=== PATIENT | female | born 1955 | race Caucasian/White ===

== ENCOUNTER → 2019-05-06 | Day surgery (SDC) | payer BC ==
[~2019-05-06] MED LIST: FENTANYL CITRATE/PF 100MCG/2 ML INJ ONE; GLUCAGON FOR INJ 1 MG VIAL ONE; HYOSCYAMINE 0.125 MG TAB ONE; LORATADINE; MIDAZOLAM HCL 2 MG/2 ML VIAL ONE; MULTIVITAMIN; PROPOFOL IV EMULSION 10 MG/ML 50 ML VIAL ONE; VITAMIN D; ZPAK
[2019-05-06 11:35] VITALS: BP 121/74
--- NOTE | 2019-05-06 18:43 | Operative Report ---
DATE OF PROCEDURE: 05/06/2019 SURGEON: Jareth Figueroa MD PROCEDURES: EGD with biopsies and colonoscopy with polypectomy. INDICATIONS FOR EGD: Dyspepsia. INDICATIONS FOR COLONOSCOPY: Surveillance colonoscopy, personal history of colon polyps. MEDICATIONS: The patient was done under MAC, please see anesthesiologist's note. PROCEDURE IN DETAIL: With the patient in the left lateral decubitus position, a flexible fiberoptic Olympus gastroscope was introduced into the esophagus under direct visualization without any difficulty. There was some patchy erythema noted in the distal esophagus. The scope was then advanced with ease into the stomach and the patient is status post Andrea-en-Y. Anastomosis was intact. The mucosa overlying the gastric cuff was erythematous and with low-grade to moderate edema and biopsies were obtained. The scope was retroflexed into the gastric pouch, some postoperative changes were noted. The scope was then straightened out, it was subsequently withdrawn, and the patient tolerated the procedure well. IMPRESSION: 1. Distal esophagitis, mild. 2. Status post Andrea-en-Y. Anastomosis patent. PLAN: Follow up histology. Initiate Protonix 40 mg 1 p.o. q.a.m. before meals. The patient was then turned around and after adequate lubrication of the anal canal, a flexible fiberoptic Olympus colonoscope was inserted into the rectum with ease and advanced all the way to the cecum. Mucosa overlying the cecum appeared to be within normal limits. Scattered diverticular disease was noted throughout. The scope was then withdrawn slowly and one polyp was hot biopsied and additional polyp was hot snared from the ascending colon. The transverse colon grossly appeared to be within normal limits. One polyp was hot snared and one polyp was hot biopsied from the descending colon. The sigmoid other than for some diverticular disease was within normal limits. The scope was then retroflexed into the distal rectum and small internal hemorrhoids were noted, none of which was actively bleeding. The scope was then straightened out, it was subsequently withdrawn, and the patient tolerated the procedure well. IMPRESSION: 1. Diverticulosis. 2. Ascending colon polyp x2, one hot snared and one hot biopsied. 3. Descending colon polyps x2, one hot snared and one hot biopsied. 4. Internal hemorrhoids, none actively bleeding. PLAN: Follow up histology. Initiate high-fiber, low-fat diet. Initiate high-fiber supplement. The patient might benefit from a followup colonoscopy in 3 to 5 years. MD ALLYN Koo/JENNY /[id number] cc: Dr. Tawana Brown
== END | disposition home or self-care (01) ==
LOC: OR 08:09
PROVIDERS: ATTEND Internal Medicine Gastroenterology
DX: K29.50 Unspecified chronic gastritis without bleeding (principal); K63.5 Polyp of colon; Z98.84 Bariatric surgery status; K20.9 Esophagitis, unspecified; K57.30 Diverticulosis of large intestine without perforation or abscess without bleeding; K64.8 Other hemorrhoids; E66.01 Morbid (severe) obesity due to excess calories; R03.0 Elevated blood-pressure reading, without diagnosis of hypertension; Z88.6 Allergy status to analgesic agent; Z68.41 Body mass index [BMI] 40.0-44.9, adult
CPT/HCPCS: 43239; 45384; 45385; 93005; J1610; J2250; J2704; J3010; 45378